=== PATIENT | female | born 1995 | race Caucasian/White ===

== ENCOUNTER 2024-11-27 18:24 | Emergency (ER) | payer MEDICAID, SELFPAY ==
[2024-11-27 18:49] VITALS: BP 132/86; PULSE 87; RESP 18; TEMP 36.6; O2SAT 99
[2024-11-27 20:16] LABS: Basophils % (Auto) 1 % (0-2.5); Eosinophils # (Auto) 0.1 Thou/mm3 (0.0-0.5); Eosinophils % (Auto) 1 % (0-10); Hematocrit 31.7 % (36.0-46.0); Hemoglobin 11.3 g/dL (12.0-16.0); Immature Granulocytes % (Auto) 0 % (0-0); Immature Granulocytes Auto 0.02 Thou/mm3 (0.00-0.00); Lymphocytes # (Auto) 2.6 Thou/mm3 (1.0-4.8); Lymphocytes % (Auto) 33 % (10-50); Mean Corpuscular HGB Conc 35.6 g/dl (31.0-37.0); Mean Corpuscular Hemoglobin 28.2 pg (25.0-35.0); Mean Corpuscular Volume 79 fL (80-100); Monocytes # (Auto) 0.6 Thou/mm3 (0.0-0.8); Monocytes % (Auto) 7 % (0-12); Neutrophils # (Auto) 4.6 Thou/mm3 (1.8-7.7); Neutrophils % (Auto) 58 % (37-80); Nucleated Red Blood Cell % 0 /100 WBC (0); Platelet Count 296 Thou/mm3 (140-440); RDW Standard Deviation 36.9 fL (36.4-46.3); Red Blood Count 4.01 Miln/mm3 (4.00-5.20)
[2024-11-27 20:32] LABS: Partial Thromboplastin Time 27.4 Seconds (22.0-36.0); Prothrombin Time 10.8 Seconds (9.0-12.2)
[2024-11-27 20:46] LABS: Albumin, Serum 4.4 gm/dL (3.5-5.0); Albumin/Globulin Ratio 1.9 (1.2-2.2); Alkaline Phosphatase 23 U/L (46-116); Anion Gap 4 (7-16); Aspartate Amino Transferase 17 U/L (0-34); BUN/Creatinine Ratio 11 Ratio (12-20); Bilirubin,Total 0.3 mg/dL (0.3-1.2); Blood Urea Nitrogen 9 mg/dL (9-23); Calcium 9.1 mg/dL (8.3-10.6); Calcium (Corrected) 9.1 mg/dL (8.5-10.1); Carbon Dioxide 25.6 mMol/L (20.0-31.0); Chloride 112 mMol/L (98-107); Creatinine (Component) 0.8 mg/dL (0.6-1.3); Estimated Creatinine Clearance 113.5 mL/min (>60); Globulin 2.3 gm/dL (2.3-3.5); Glucose 88 mg/dL (74-106); Osmolality,Calculated 280 (275-295); Potassium 3.7 mMol/L (3.4-5.1); Sodium 142 mMol/L (136-145); Total Protein 6.7 gm/dL (5.7-8.2); eGFR > 60 See Note
[2024-11-27 20:54] LABS: Alanine Aminotransferase 10 U/L (10-49)
== END 2024-11-27 21:47 | disposition left against medical advice (07) ==
LOC: SERX 19:56
PROVIDERS: Physician Assistant; Emergency Provider Emergency Medicine
DX: Z53.21 Procedure and treatment not carried out due to patient leaving prior to being seen by health care provider (principal)
CPT/HCPCS: 36415; 80053; 85025; 85610; 85730; 99281

== ENCOUNTER 2025-01-02 07:05 | Day surgery (SDC) | payer MEDICAID, SELFPAY ==
[2025-01-01 10:56] VITALS: BMI 30.2
[2025-01-01 11:47] LABS: Basophils # (Auto) 0.1 Thou/mm3 (0.0-0.2); Basophils % (Auto) 1 % (0-2.5); Eosinophils # (Auto) 0.1 Thou/mm3 (0.0-0.5); Eosinophils % (Auto) 1 % (0-10); Hematocrit 30.3 % (36.0-46.0); Hemoglobin 10.1 g/dL (12.0-16.0); Immature Granulocytes % (Auto) 0 % (0-0); Immature Granulocytes Auto 0.02 Thou/mm3 (0.00-0.00); Lymphocytes # (Auto) 2.1 Thou/mm3 (1.0-4.8); Lymphocytes % (Auto) 29 % (10-50); Mean Corpuscular HGB Conc 33.3 g/dl (31.0-37.0); Mean Corpuscular Hemoglobin 26.2 pg (25.0-35.0); Mean Corpuscular Volume 79 fL (80-100); Monocytes # (Auto) 0.4 Thou/mm3 (0.0-0.8); Monocytes % (Auto) 6 % (0-12); Neutrophils # (Auto) 4.6 Thou/mm3 (1.8-7.7); Neutrophils % (Auto) 63 % (37-80); Nucleated Red Blood Cell % 0 /100 WBC (0); Platelet Count 247 Thou/mm3 (140-440); RDW Standard Deviation 36.3 fL (36.4-46.3); Red Blood Count 3.86 Miln/mm3 (4.00-5.20); White Blood Count 7.3 Thou/mm3 (3.6-11.0)
[2025-01-01 12:07] LABS: HIV (1&2) Antibody Rapid Non-Reactive
[2025-01-01 12:14] LABS: HCG,Qualitative Serum Negative
[2025-01-01 12:56] LABS: Hepatitis A Antibody IgM Non Reactive (Non React); Hepatitis B Core Antibody IgM Non Reactive (Non React); Hepatitis B Surface Antigen Non Reactive (Non React); Hepatitis C Antibody Non Reactive (Non React)
[2025-01-02] VITALS (8 sets, daily range): BP systolic 113–127; BP diastolic 57–84; PULSE 59–74; RESP 12–20; TEMP 36.2–36.4; O2SAT 97–100
--- NOTE | 2025-01-02 07:25 | CHAP ---
Visited briefly with patient about her family and had prayer.
--- NOTE | 2025-01-02 08:34 | PD.GYNHP ---
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 SLATER is a 29 year old female para 5 admitted for an endometrial ablation. Patient has been having abnormally heavy uterine bleeding and has not responded to any medications. Patient had 5 previous vaginal deliveries and had a sterilization. Patient has been admitted 2-3 times in the ER for blood transfusion. Patient transferred her care from another provider to sd for getting the ablation. Patient had an EMB which showed no hyperplasia and cancer Past Medical History Past Medical History NEUROLOGIC: Negative Neurological Disorders or Seizures CARDIAC: Negative Cardiac Disorders or Congestive Heart Failure RESPIRATORY: Negative Chronic Obstructive Pulmonary Disease (COPD) GASTROINTESTINAL: Negative Gastrointestinal Disorders or Hepatitis GENITOURINARY: Negative Genitourinary Disorders or Renal Disease REPRODUCTIVE: Positive Previous Pregnancies; Negative Pelvic Inflammatory Disease MUSCULOSKELETAL: Negative Musculoskeletal Disorders ENDOCRINE: Negative Endocrine Disorders, Diabetes Mellitus Type 1 or Diabetes Mellitus Type 2 HEMATOLOGIC: Negative Blood Disorders PSYCHO/SOCIAL: Positive Depression OTHER HISTORY: Positive Hospitalization (CHILDBIRTH); Negative Autoimmune Disease, Blood Transfusions, Blood Transfusion Reaction, Anesthesia Reactions, MRSA, VRSA, Vancomycin-Resistant Enterococci, Human Immunodeficiency Virus (HIV), Chicken Pox, Measles, Mumps, Rubella (Lao Measles), Pertussis, Clostridium Difficile or Cancer Family History FAMILY HISTORY: Positive Family Cardiac Disorders and Family Cancer; Negative Family Psychiatric Problems, Family Respiratory Disorders, Family Gastrointestinal Problems, Family Surgery or Family Anesthesia Reaction Surgical History SURGICAL: Positive Section Social History SMOKING STATUS: Current every day smoker SECOND HAND EXPOSURE: No SUBSTANCE USE: does not use Meds Home Medications and Allergies Home Medications ?Medication ?Instructions ?Recorded ?Confirmed ?Type tirzepatide (weight loss) 10 10 mg subcut QWEEK 01/01/25 01/01/25 History mg/0.5 mL subcutaneous pen injector (Zepbound) Allergies Allergy/AdvReac Type Severity Reaction Status Date / Time No Known Allergies Allergy Verified 01/01/25 10:55 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 Temp Pulse Resp BP Pulse Ox 97.5 F 74 20 125/69 99 01/02/25 07:37 01/02/25 07:37 01/02/25 07:37 01/02/25 07:37 01/02/25 07:37 Constitutional Constitutional: no acute distress Routine HEENT Exam Head: Present normocephalic and atraumatic Eye: Present EOMI and PERRL ENT: Present mucous membranes moist Routine Neck Exam Neck: Present supple and trachea midline Routine Respiratory Exam Respiratory: Present chest non-tender, lungs clear, normal breath sounds and no resp distress Routine Cardiovascular Exam Cardiovascular: Present RRR Routine Abdominal Exam Abdominal: Present soft and normoactive bowel sounds Routine Extremities Exam Extremities: Present full ROM Routine Skin Exam Skin: Present intact and dry Routine Neurological Exam Neurological: Present alert, oriented X3 and CN II-XII intact Routine Psychiatric Exam Psychiatric: Present normal affect and normal thought process [employer]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 No disreteuterine masses are seen.Endometrial stripe measures 5 mm thickness. Assessment and Plan Additional Assessment & Plan Additional Plan: diagnostic hysteroscopy ablation Quality Measures Quality Measures VTE prophylaxis
--- NOTE | 2025-01-02 09:42 | SUR.PHASEI ---
pt received from OR in recovery bay 1. pt awake and alert, breathing unlabored on 8l oxymask. v/s stable. pt dressing peripad scant bleeding noted. report received from Irasema Murray and Dr. Yepez.
--- NOTE | 2025-01-02 09:46 | PD.GYNPROC ---
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 The potential benefits and risks of the procedure, the likelihood of success, and the problems related to recuperation have been discussed with patient who agrees to proceed. The possible results of nontreatment and significant alternatives to the proposed procedure have also been explained, along with the risks and benefits of the alternatives. Risks and benefits of chosen anesthetic/sedation and possible use of blood/blood products (if appropriate) were discussed.The patient was identified as Doreen Kent and the procedure verified. A time out was held reviewing the patient identifiers, procedure planned and allergies. At this point the procedure was begun. The patient was positioned and prepped in routine fashion in the dorsal lithotomy position using yellowfin stirups. On examination under anesthesia,the uterus was retroverted to a normal size. Bladder was drained by catheter. A weighted speculum was then placed into the patient's posterior vagina. A fortino was used to expose the anterior lip of the cervix which was then grasped by a single tooth tenaculum.The cervix was then very easily dilated to a size 6 Hegar dilator. The hysteroscope was then placed under direct visualization. Warm lactated Ringer's was used as a distention medium. The patient's uterus was found to have very thick endometrium however no polyps or fibroids or any abnormal anatomy was found. Pictures were taken. Hysteroscope was removed and we proceeded with the NovaSure. After cervical length and uterine length was measured and recorded NovaSure RF RA was open outside the body of the patient to make sure the area opens fully and functionally. Cavity length was inserted as 5.5. With the tenaculum on anterior lip having forward traction to decrease the angle of the anteversion NovaSure was inserted until it touched the fundus. Thumb piece was sealed to the cervix now withdrawing the NovaSure back by 0.5 cm every time slowly the area was attempted to close mild rotatory movements were also used until the NovaSure was logged without any excessive resistance. The total width was found to be 3.5 cm cavity assessment was started and was completed making sure there are no leaks suggesting uterine perforation. After cavity assessment was completed ablation was started. Cervical length 4 cm Uterine length 9.5 cm Cavity length 5.5 cm Cavity width 3.5 cm Power setting 106 W Duration of ablation 2 minutes After the ablation was completed the area was closed before withdrawing it out of the uterine cavity. Hysteroscopy repeated to find the intrauterine cavity well ablated. Ring forceps applied to the anterior lip to decrease bleeding from the tenaculum site Estimated blood loss (ml): 5 Surgical staff Operation Date: 01/02/25 09:05 <No data on this case meets the specified criteria> Diagnosis Problem List Completed Was Problem List Reviewed/Reconciled?: Yes
[2025-01-02] MEDS: fentaNYL CIT INJ 50 mCg/ML AMP 2ML 25 MCG IVP (09:50)
[2025-01-02] MEDS: ACETAMINOPHEN IVPB 1,000 MG/100 ML VIAL 250 MG IV (09:51)
--- NOTE | 2025-01-02 10:08 | SUR.PHASEI ---
pt able to tolerate oral fluids without difficulty swallowing or nausea/vomiting.
[2025-01-02] MEDS: fentaNYL CIT INJ 50 mCg/ML AMP 2ML 25 MCG IV (10:14)
--- NOTE | 2025-01-02 10:46 | SUR.PHASEII ---
pt awake and alert, breathing unlabored on room air. v/s stable. pt dressing peripad scant bleeding noted. pt able to ambulate to wheelchair with steady gait. d/c instructions given with mother Micaela in room, all questions answered. pt d/c via wheelchair with all belongings.
--- NOTE | 2025-01-02 11:27 | SUR.OPER ---
Patient has old bruising on both arms and legs. Noted that she lives with disabled child who has aggression issues.
== END 2025-01-02 10:46 | disposition home or self-care (01) ==
PROVIDERS: PCP Physician Assistant; Referring Provider Student in an Organized Health Care Education/Training Program; Visit Provider Student in an Organized Health Care Education/Training Program
PROC: 0U5B8ZZ Destruction of Endometrium, Via Natural or Artificial Opening Endoscopic (ICD-10-PCS; CPT 58563; principal; 2025-01-02 09:00)
DX: N93.9 Abnormal uterine and vaginal bleeding, unspecified (principal)
CPT/HCPCS: 58563; 36415; 80074; 84703; 85025; 86703; 86850; 86900; 86901; A4217; A4649; J0131; J0461; J1100; J2250; J2405; J2704; J3010; S0077; J0736